=== PATIENT | female | born 1995 | race Caucasian/White ===

== ENCOUNTER 2017-09-02 13:57 | Emergency (ER) | payer MEDICAID, SELFPAY ==
[2017-09-02 15:02] LABS: Bilirubin Small (Negative); Clarity CLOUDY (Clear); Glucose, Urine (Dipstick) Negative (Negative); Leukocyte Small (Negative); Nitrite Negative (Negative); Protein, Urine (Dipstick) Negative (Neg-Trace); Specific Gravity, Urine 1.025 (1.002-1.036)
[2017-09-02 15:06] LABS: Pregnancy Test - Urine (BHCG) POSITIVE (Negative); Pregu Control Background? CLEAR/WHITE (CLR/WHITE); Pregu Control Bar Appear? YES (CONTROL BAR); Specific Gravity 1.025 (1.002-1.036)
[2017-09-02 15:07] LABS: Bacteria/HPF 1+ HPF (None Seen); Hyaline Casts/LPF 0-3 HYALINE CAST LPF (0-3 Hyaline); Pathc Cast-AUWi Flag 0.54 (0-2.49)
[2017-09-02 15:13] LABS: Blood, Urine Trace (Negative)
--- NOTE | 2017-09-02 16:34 | ULT ---
ULTRASOUND PELVIC TRANSVAGINAL 09/02/17 HISTORY: Pelvic pain. COMPARISON: None. FINDINGS: Real time huizar scale, color doppler and spectral analysis of the pelvis is performed via transabdomin al and transvaginal approach. A single viable intrauterine with average ultrasound age 8 we ek, 4 day. Estimated date of delivery 04/10/18. [place]-rump length is 1.03 cm, 7 week 1 day and gestati onal sac diameter of 4.31 cm, 9 week, 6 day, yolk sac is 0.31 cm. heart rate documented at 121 beats per minute. Cervix is closed. Adequate vascular flow to both ovaries. Right ovary measures 3.0 x 2.1 x 2.3 cm and left ovary measures 2.6 x 2.3 x 1.9 cm. IMPRESSION: 1. Single viable intrauterine with average ultrasound age of 8 week, 4 days. Estimated date of delivery of 04/10/18. 2. Normal vascular flow to the ovaries. POS: [facility]
[2017-09-06 20:09] LABS: Chlamydia trachomatis by NAA Positive (Negative)
== END 2017-09-02 16:59 | disposition home or self-care (01) ==
LOC: ERS 13:57
DX: O21.9 Vomiting of pregnancy, unspecified (principal); Z3A.11 11 weeks gestation of pregnancy
CPT/HCPCS: 36415; 76856; 81003; 81015; 81025; 84702; 87077; 87086; 87480; 87491; 87510; 87591; 87660

== ENCOUNTER 2018-03-20 19:37 | Day surgery (SDC) | payer OTHER ==
[2018-03-20 20:07] VITALS: BP 109/59; TEMP 99.3; BMI 25.8
--- NOTE | 2018-03-20 20:22 | PDOC.LDHP ---
Labor and Delivery H&P HPI: Here for bloody show No real CTX or LOF Patient of [facility] HPI: 22yo at 37 weeks with bloody show..no carson bleed or ROM. Good FM. Sees an MD at [facility]. Her EDC: 04/10/18 Review of systems: complete ROS performed and negative as per HPI Current gestational age (weeks): 37 Due date: 04/10/18 Dating criteria: last menstrual period Grav: 2 Para: 1 OB History Details: x 1 Current complications: none Abnormal US findings: No Current medications: none Previous surgical history: none Allergies/Adverse Reactions: Allergies Allergy/AdvReac Type Severity Reaction Status Date / Time No Known Drug Allergies Allergy Verified 03/20/18 20:00 - Physical Exam Vital signs reviewed and normal: yes (109/59 90 99.3) General: NAD Heart: RRR Lungs: CTAB Abdomen: gravid (garvid, NT) Extremeties: no edema FHT: category 1 [place] contractions every: no contraction pattern, only irritability - Vaginal Exam cm dilated: 3 (BOWI) Effacement: 25% Station: -1 - Assessment Latent labor, early term......no evidence active contractions - Plan Plan: observation in L&D (NST reactive (strip reactive). Plan of care discussed with her. We will obs in L&D for about 30 minutes but no evidence true labor by contractions (none seen). I recommended f/u within 24 hours with her ObGyn at [facility])
--- NOTE | 2018-03-20 20:36 | PDOC.EVN ---
Event Note - Event Note Event Note: Triage: Patient seen at bedside. Latent phase of labor discussed with her. She asked "when will delivery happen?" I told her that onset of labor is unpredictable and latent labor may last hours to days. Q&A done. May return to work as no medical indications exist to keep off work. OK for discharge.
== END 2018-03-20 20:38 | disposition home or self-care (01) ==
LOC: L&D/OP 19:37
PROVIDERS: ATTEND Obstetrics & Gynecology
DX: O26.853 Spotting complicating pregnancy, third trimester (principal); Z3A.37 37 weeks gestation of pregnancy
CPT/HCPCS: 99282